=== PATIENT | female | born 1985 | race Caucasian/White ===

== ENCOUNTER 2022-08-11 19:09 | Emergency (ER) | payer SELFPAY ==
[~2022-08-11] VITALS: Ht 162.6 cm; Wt 68.2 kg
[~2022-08-11 19:09] MED LIST: CIPR-278 PO; PREN-134 PO
[2022-08-11 19:21] VITALS: BP 147/100
[2022-08-11 19:54] LABS: COVID AG,FIA SOURCE NASAL SWAB
[2022-08-11 20:19] LABS: INFLUENZA TYPE A NEGATIVE FOR TYPE A (NEGATIVE); INFLUENZA TYPE B NEGATIVE FOR TYPE B (NEGATIVE)
[2022-08-11] MEDS ORDERED: ACETAMINOPHEN 500 MG TABLET PO ONE (21:45)
[2022-08-11] MEDS ORDERED: OXYMETAZOLINE HCL 0.05% 15 ML NASAL SPRAY NASAL ONE (22:15)
[2022-08-11] MEDS ORDERED: ALBUTEROL SULFATE HFA 90 MCG/PUFF 8 GM INHALER IH ONE (22:15)
== END 2022-08-11 22:59 | disposition home or self-care (01) ==
LOC: EMS 19:10
DX: J40 Bronchitis, not specified as acute or chronic (principal); Z20.822 Contact with and (suspected) exposure to COVID-19
CPT/HCPCS: 71045; 87804; 94640; 99284; J3535